=== PATIENT | female | born 1945 | race Caucasian/White ===

== ENCOUNTER → 2016-04-28 | Outpatient (CLI) | payer OTHER ==
[~2016-04-28] MED LIST: AMOX875T PO; ATV1 PO; DICY20TA10 PO; DPKSR/250 PO; MXL10 PO; PRLSR20 PO; SNG10 PO; SYN125 PO; TRAM-10 PO; ZTA10 PO
--- NOTE | 2016-04-28 15:07 | MAMMOGRAPHY REPORT ---
BILATERAL DIGITAL SCREENING MAMMOGRAM WITH CAD: 04/28/2016 TECHNIQUE: Current study was also evaluated with a Computer Aided Detection (CAD) system. Bilatera l CC and MLO views were obtained. COMPARISON: Comparison is made to exams dated: 03/12/2015 mammogram, 12/22/2012 mammogram, 1 mammogram, 01/09/2014 mammogram, 12/14/2011 mammogram, and 12/09/2009 mammogram - [facility]. BREAST COMPOSITION: There are scattered areas of fibroglandular density in both breasts. FINDINGS: No suspicious masses, calcifications, or areas of architectural distortion are noted in e ither breast. There has been no significant interval change compared to prior exams. Scattered bilat eral benign-appearing calcifications are not significantly changed. IMPRESSION: ACR BI-RADS CATEGORY 2: BENIGN There is no mammographic evidence of malignancy. A 1 year screening mammogram is recommended. The p atient will receive written notification of the results. Approximately 10% of breast cancers are not detected with mammography. A negative mammographic repor t should not delay biopsy if a clinically suggestive mass is present. Vonda Vizcaino M.D. ah/:04/28/2016 12:28:23 Repeater Operator: Karlene GUPTA(Alanna)(Helen), [facility] letter sent: Normal 1/2 BI-RADS Code: ACR BI-RADS Category 2: Benign
== END | disposition home or self-care (01) ==
LOC: C.MAMM 10:39
PROVIDERS: ATTEND Obstetrics & Gynecology
DX: Z12.31 Encounter for screening mammogram for malignant neoplasm of breast (principal)

== ENCOUNTER → 2016-06-15 | Outpatient (CLI) | payer OTHER ==
[~2016-06-15] MED LIST changes: -MXL10 PO; +RIZA10TA21 PO
--- NOTE | 2016-06-15 14:16 | DIAGNOSTIC IMAGING REPORT ---
KUB HISTORY: Lower abdominal pain. Constipation. COMPARISON: Abdomen and pelvis CT 12/25/2015. FINDINGS: The bowel gas pattern is unremarkable. There are no dilated loops of small bowel to suggest an obstruction. No renal calculi. No ureteral calculi. No pneumoperitoneum or pneumatosis. Moderate to large amount well-formed stool seen within the colon and rectum. IMPRESSION: No evidence for bowel obstruction. Moderate to large amount of well-formed stool seen within the colon and rectum. Electronically signed by: Valente Hall M.D. 06/15/2016 2:14 PM Dictated Date/Time: 06/15/2016 2:13 PM
[2016-06-15 14:39] LABS: BASO % 0.4 %; BASO ABS # 0.02 K/uL (0-0.2); COMPLETE YES; EOS % 1.1 %; HEMATOCRIT 42.3 % (37-47); IG% 0.2 %; LYMPH % 31.4 %; LYMPH ABS # 1.76 K/uL (1.2-3.4); MEAN CELL VOLUME 88.9 fL (80-100); MEAN CORPUSCULAR HEMOGLOBIN 30.7 pg (25-34); MEAN CORPUSCULAR HGB CONC 34.5 g/dl (32-36); MEAN PLATELET VOLUME 9.7 fL (7.4-10.4); NEUT % 58.9 %; PLATELET COUNT 279 K/uL (130-400); RED BLOOD COUNT 4.76 M/uL (4.2-5.4)
[2016-06-15 15:04] LABS: ALT/SGPT 55 U/L (12-78); BLOOD UREA NITROGEN 9 mg/dl (7-18); CALCIUM 9.5 mg/dl (8.5-10.1); CARBON DIOXIDE 26 mmol/L (21-32); CHLORIDE 101 mmol/L (98-107); CREATININE 0.79 mg/dl (0.60-1.20); GLUCOSE 79 mg/dl (70-99); POTASSIUM 4.1 mmol/L (3.5-5.1); SODIUM 138 mmol/L (136-145)
[2016-06-15 15:07] LABS: ALB/GLOB RATIO 1.2 (0.9-2); ALKALINE PHOSPHATASE 68 U/L (45-117); AST/SGOT 39 U/L (15-37)
== END | disposition home or self-care (01) ==
LOC: C.RAD 13:24
PROVIDERS: ATTEND Family Medicine
DX: R10.30 Lower abdominal pain, unspecified (principal)

== ENCOUNTER → 2016-06-24 | Outpatient (CLI) | payer OTHER ==
[~2016-06-24] MED LIST changes: +OPTIRAY 320 IV PRN
--- NOTE | 2016-06-24 18:19 | DIAGNOSTIC IMAGING REPORT ---
CT OF THE ABDOMEN AND PELVIS WITH CONTRAST CLINICAL HISTORY: Abdominal pain. Diverticulitis. Evaluate for abscess. COMPARISON STUDY: CT of the abdomen and pelvis December 25, 2015. TECHNIQUE: Following IV administration of 115 mL of Optiray-320, axial images of the abdomen and pelvis were obtained from the lung bases to the proximal femurs. Images were reviewed in the axial, sagittal, and coronal planes. IV contrast was administered without complication. Oral contrast was administered. CT DOSE: 414.95 mGy.cm FINDINGS: Lung bases are clear. The liver, spleen, adrenal glands, kidneys and pancreas are unremarkable. There is no pneumatosis, free air or portal venous gas. There is no peripancreatic or pericholecystic infiltration. There is no evidence for a bowel obstruction. There is a moderate amount of stool within the ascending and transverse colon. There is left colon diverticulosis without evidence for acute diverticulitis. No suspicious osseous lesion is present. There is moderate atherosclerotic plaque of the abdominal aorta which is normal in caliber. Major vessels of the abdomen and pelvis are patent. IMPRESSION: 1. No acute process within the abdomen or pelvis. 2. Left colon diverticulosis without evidence for acute diverticulitis. No abscess. Resolution of diverticulitis involving the descending colon shown on CT of December 25, 2015. 3. Moderate amount of stool within the ascending and transverse colon. Electronically signed by: Telly Camejo M.D. 06/24/2016 6:17 PM Dictated Date/Time: 06/24/2016 6:09 PM
== END | disposition home or self-care (01) ==
LOC: C.CTS 15:43
PROVIDERS: ATTEND Family Medicine
DX: R10.9 Unspecified abdominal pain (principal); K57.90 Diverticulosis of intestine, part unspecified, without perforation or abscess without bleeding

== ENCOUNTER → 2016-09-06 | Outpatient (CLI) | payer OTHER ==
[~2016-09-06] MED LIST changes: -OPTIRAY 320 IV PRN
[2016-09-06 13:28] LABS: BASO % 0.8 %; BASO ABS # 0.04 K/uL (0-0.2); COMPLETE YES; EOS % 7.9 %; HEMATOCRIT 42.4 % (37-47); IG% 0.2 %; LYMPH % 30.2 %; LYMPH ABS # 1.53 K/uL (1.2-3.4); MEAN CELL VOLUME 89.6 fL (80-100); MEAN CORPUSCULAR HEMOGLOBIN 29.6 pg (25-34); MEAN PLATELET VOLUME 9.4 fL (7.4-10.4); MONO % 10.5 %; NEUT % 50.4 %; PLATELET COUNT 284 K/uL (130-400); RED BLOOD COUNT 4.73 M/uL (4.2-5.4); WHITE BLOOD COUNT 5.06 K/uL (4.8-10.8)
[2016-09-06 14:36] LABS: ALB/GLOB RATIO 1.4 (0.9-2); ALKALINE PHOSPHATASE 69 U/L (45-117); ALT/SGPT 26 U/L (12-78); AST/SGOT 17 U/L (15-37); BLOOD UREA NITROGEN 20 mg/dl (7-18); BUN/CREATININE RATIO 22.6 (10-20); CALCIUM 9.5 mg/dl (8.5-10.1); CARBON DIOXIDE 29 mmol/L (21-32); CHLORIDE 102 mmol/L (98-107); CREATININE 0.89 mg/dl (0.60-1.20); GLUCOSE 47 mg/dl (70-99); POTASSIUM 4.1 mmol/L (3.5-5.1); SODIUM 138 mmol/L (136-145)
[2016-09-06 14:45] LABS: CHOLESTEROL/HDL RATIO 3.6
== END | disposition home or self-care (01) ==
LOC: C.LAB 12:17
PROVIDERS: ATTEND Physician Assistant
DX: G43.909 Migraine, unspecified, not intractable, without status migrainosus (principal); E03.9 Hypothyroidism, unspecified

== ENCOUNTER 2016-11-15 20:42 | Emergency (ER) | payer OTHER ==
[~2016-11-15] VITALS: Ht 162.6 cm; Wt 73.5 kg
[~2016-11-15 20:42] MED LIST changes: -AMOX875T PO; +MXL10 PO; -RIZA10TA21 PO; -TRAM-10 PO
[2016-11-15 20:44] VITALS: TEMP 36.6; Ht 162.6 cm; Wt 73.5 kg
[2016-11-15] MEDS ORDERED: SODIUM CHLORIDE 0.9% 250ML 250 ML IV STA (20:51)
[2016-11-15] MEDS ORDERED: SODIUM CHLORIDE 0.9% 1000ML 1,000 ML IV STA (20:51)
--- NOTE | 2016-11-15 21:01 | EMERGENCY ROOM VISIT NOTE ---
History Report prepared by Cathleen: Venkat Crawford Under the Supervision of: Dr. Milena Saavedra M.D. First contact with patient: 20:51 Chief Complaint: ABDOMINAL PAIN Stated Complaint: PAIN IN LEFT SIDE History of Present Illness The patient is a 71 year old female who presents to the Emergency Room with complaints of left lower quadrant abdominal pain that began this morning. She rates her pain an 8/10 in severity. The patient has a history of diverticulitis that occurred 1 year ago. She states her current symptoms feel similar to those of her past diverticulitis. She notes that last year when her pain occurred, she had eaten eggplant. She did eat eggplant yesterday evening. She denies any fevers, diarrhea, or hematochezia. Her last bowel movement was this morning which was normal. She also notes that after drinking herbal tea, her pain improved, but worsened after eating. She went to [facility] this evening, received x-rays, and was sent here. Source of History: patient Onset: this morning Position: abdomen (LLQ) Symptom Intensity: 8/10 Quality: ache Timing: constant Modifying Factors (Worsening): eating Modifying Factors (Relieving): drinking (herbal tea) Associated Symptoms: No melena, No hematochezia, No diarrhea Review of Systems See HPI for pertinent positives & negatives. A total of 10 systems reviewed and were otherwise negative. Past Medical & Surgical Medical Problems: (1) Asthma (2) Depression (3) Hypoglycemia (4) Hypothyroidism (5) Raynauds syndrome (6) Seasonal allergies Family History Cancer Diabetes mellitus Hypertension Social History Smoking Status: Former Smoker Alcohol Use: none Marital Status: Housing Status: lives with family Occupation Status: retired Current/Historical Medications Scheduled Divalproex Sodium (Depakote Extended-Release), 250 MG PO HS Ezetimibe (Zetia), 10 MG PO DAILY Levothyroxine Sodium (Synthroid), 125 MCG PO DAILY Montelukast (Singulair *), 10 MG PO DHS Scheduled PRN Dicyclomine Hcl (Dicyclomine Hcl), 20 MG PO DAILY PRN for unkn Lorazepam (Lorazepam), 1 MG PO HS PRN for RESTLESS LEG Omeprazole (Prilosec), 20 MG PO DAILY PRN for GI Upset Rizatriptan Benzoate (Rizatriptan Benzoate), 10 MG PO DIRECTED PRN for Migraine Allergies Coded Allergies: Morphine (Verified Allergy, Mild, RASH, 11/15/16) Mild rash Quinolones (Verified Allergy, Mild, ALLERGY TO FLOXIN, CIPRO, 11/15/16) Dust (Unverified Allergy, Unknown, 11/15/16) Molds and Smuts (Unverified Allergy, Unknown, 11/15/16) Metronidazole (Unverified Adverse Reaction, Severe, MIGRAINE, 11/15/16) Physical Exam Vital Signs Date Time Temp Pulse Resp B/P (MAP) Pulse Ox O2 Delivery O2 Flow Rate FiO2 11/15/16 22:29 83 20 135/69 98 Room Air 11/15/16 21:19 63 11/15/16 20:44 36.6 68 16 153/70 100 Room Air Physical Exam Vital signs reviewed. General: Well-appearing female, in no significant distress. HEENT: No scleral icterus, PERRLA, neck supple. Atraumatic. Cardiovascular: Regular rate and rhythm, no extra sounds. Pulmonary: Clear to auscultation bilaterally, normal work of breathing. Abdomen: Soft, tender to palpation in the LLQ, nondistended, positive bowel sounds. Musculoskeletal: Atraumatic, no peripheral edema. Neurologic: Patient awake alert and oriented x 3, full strength in all 4 extremities. Cranial nerves 2 through 12 grossly intact. Skin: Warm, dry, no rash Medical Decision & Procedures ER Provider Diagnostic Interpretation: Radiology results as stated below per my review and radiologist interpretation: ABD/PELVIS IV CONTRAST ONLY HISTORY: 71 years-old Female LLQ pain, diverticulitis acute left lower quadrant abdominal pain. Initial exam. COMPARISON: CT abdomen and pelvis 06/24/2016 TECHNIQUE: Multiple axial CT images of the abdomen and pelvis were obtained following the intravenous administration of 92 mL Optiray 320. A dose lowering technique was used consistent with the principals of CHANDLER. FINDINGS: Inferior cardiac chambers are unremarkable, although there is a trace pericardial effusion. Lung bases are clear. Liver, gallbladder, spleen, pancreas and adrenal glands are within normal limits. Kidneys, ureters and urinary bladder are unremarkable. The uterus appears age-appropriate. Moderate to extensive atherosclerotic plaquing of the abdominal and iliac vasculature is noted. No bulky retroperitoneal adenopathy identified. Small sliding type hiatal hernia. There is no small bowel obstruction. Trace free fluid within the pelvis is seen. There is moderate wall thickening of the distal descending colon with mucosal hyperemia surrounding inflammatory stranding. Several colonic diverticula are seen within this distribution suggesting acute diverticulitis. There is no evidence of associated perforation or abscess at this time. Moderate stool burden. Soft tissues are unremarkable. Bones appear intact. 7 mm anterolisthesis L4-L5 appears to be secondary to severe facet arthropathy. There is mild convex left curvature of the lumbar spine. IMPRESSION: Findings compatible with acute uncomplicated diverticulitis of the distal descending colon without evidence of perforation or abscess. The above report was generated using voice recognition software. It may contain grammatical, syntax or spelling errors. Electronically signed by: Home Martin M.D. 11/15/2016 10:57 PM Dictated Date/Time: 11/15/2016 10:52 PM Laboratory Results 11/15/16 21:23 Red Blood Count 4.48, Mean Corpuscular Volume 87.3, Mean Corpuscular Hemoglobin 30.8, Mean Corpuscular Hemoglobin Concent 35.3, Mean Platelet Volume 9.1, Neutrophils (%) (Auto) 64.0, Lymphocytes (%) (Auto) 23.7, Monocytes (%) (Auto) 8.9, Eosinophils (%) (Auto) 2.6, Basophils (%) (Auto) 0.5, Neutrophils # (Auto) 4.88, Lymphocytes # (Auto) 1.81, Monocytes # (Auto) 0.68, Eosinophils # (Auto) 0.20, Basophils # (Auto) 0.04 11/15/16 21:23 Test 11/15/16 21:11 11/15/16 21:23 Urine Color YELLOW Urine Appearance CLEAR (CLEAR) Urine pH 7.0 (4.5-7.5) Urine Specific [place] 1.007 (1.000-1.030) Urine Protein NEG (NEG) Urine Glucose (UA) NEG (NEG) Urine Ketones NEG (NEG) Urine Occult Blood NEG (NEG) Urine Nitrite NEG (NEG) Urine Bilirubin NEG (NEG) Urine Urobilinogen NEG (NEG) Urine Leukocyte Esterase SMALL (NEG) Urine WBC (Auto) 0 /hpf (0-5) Urine RBC (Auto) 0-4 /hpf (0-4) Urine Hyaline Casts (Auto) 0 /lpf (0-5) Urine Epithelial Cells (Auto) 0-5 /lpf (0-5) Urine Bacteria (Auto) NEG (NEG) White Blood Count 7.63 K/uL (4.8-10.8) Red Blood Count 4.48 M/uL (4.2-5.4) Hemoglobin 13.8 g/dL (12.0-16.0) Hematocrit 39.1 % (37-47) Mean Corpuscular Volume 87.3 fL (80-100) Mean Corpuscular Hemoglobin 30.8 pg (25-34) Mean Corpuscular Hemoglobin Concent 35.3 g/dl (32-36) Platelet Count 222 K/uL (130-400) Mean Platelet Volume 9.1 fL (7.4-10.4) Neutrophils (%) (Auto) 64.0 % Lymphocytes (%) (Auto) 23.7 % Monocytes (%) (Auto) 8.9 % Eosinophils (%) (Auto) 2.6 % Basophils (%) (Auto) 0.5 % Neutrophils # (Auto) 4.88 K/uL (1.4-6.5) Lymphocytes # (Auto) 1.81 K/uL (1.2-3.4) Monocytes # (Auto) 0.68 K/uL (0.11-0.59) Eosinophils # (Auto) 0.20 K/uL (0-0.5) Basophils # (Auto) 0.04 K/uL (0-0.2) RDW Standard Deviation 42.5 fL (36.4-46.3) RDW Coefficient of Variation 13.2 % (11.5-14.5) Immature Granulocyte % (Auto) 0.3 % Immature Granulocyte # (Auto) 0.02 K/uL (0.00-0.02) Anion Gap 6.0 mmol/L (3-11) Est Creatinine Clear Calc Drug Dose 73.5 ml/min Estimated GFR () 101.7 Estimated GFR (Non- 87.8 BUN/Creatinine Ratio 15.0 (10-20) Calcium Level 9.3 mg/dl (8.5-10.1) Total Bilirubin 0.5 mg/dl (0.2-1) Direct Bilirubin 0.1 mg/dl (0-0.2) Aspartate Amino Transf (AST/SGOT) 22 U/L (15-37) Alanine Aminotransferase (ALT/SGPT) 23 U/L (12-78) Alkaline Phosphatase 61 U/L (45-117) Total Protein 6.7 gm/dl (6.4-8.2) Albumin 3.9 gm/dl (3.4-5.0) Lipase 88 U/L (73-393) Laboratory results per my review. Medications Administered Medications (Trade) Dose Ordered Sig/Eloina Route Start Time Stop Time Status Last Admin Dose Admin Sodium Chloride 1,000 ml @ 125 mls/hr Q8H STAT IV 11/15/16 20:51 11/16/16 04:50 11/15/16 21:46 125 MLS/HR Sodium Chloride 250 ml @ 999 mls/hr Q16M STAT IV 11/15/16 20:51 11/15/16 21:06 DC 11/15/16 21:29 999 MLS/HR Morphine Sulfate (MoRPHine SULFATE INJ) 4 mg NOW STAT IV 11/15/16 22:16 11/15/16 22:17 DC 11/15/16 22:27 4 MG Ondansetron HCl (Zofran Inj) 4 mg NOW STAT IV 11/15/16 22:16 11/15/16 22:17 DC 11/15/16 22:27 4 MG Diphenhydramine HCl (Benadryl Inj) 25 mg NOW STAT IV 11/15/16 22:56 11/15/16 22:57 DC 11/15/16 22:59 25 MG ED Course 2050: Past medical records reviewed. The patient was evaluated in room B3B. A complete history and physical examination was performed. 2050: Ordered Sodium Chloride 250 ml @ 999 mls/hr IV, Sodium Chloride 1000 ml @ 125 mls/hr IV 2215: Ordered Zofran Inj 4 mg IV, Morphine Sulfate 4 mg IV 0: Upon reevaluation, the patient appeared to have improvement of her symptoms. I discussed findings with her. She verbalized agreement of the treatment plan. She was discharged home. Medical Decision Differential diagnosis: Etiologies such as appendicitis, diverticulitis, PUD, biliary pathology, UTI, pancreatitis, obstruction, mesenteric ischemia, aortic pathology, infections, inflammatory bowel disease, renal colic, as well as others were entertained. This patient was evaluated and appeared to be in no significant distress. IV access was obtained and laboratory work was drawn. The patient was placed on the seamer and found to be in a normal sinus rhythm. She was hydrated with normal saline solution. Patient was medicated with morphine and Zofran for her discomfort. CT scan abdomen and pelvis was performed with IV contrast. This study is consistent with acute diverticulitis without abscess or perforation. Patient has a normal white blood cell count. She did develop a mild rash to the morphine and was given 25 mg of IV Benadryl. Patient was informed of the findings. She was given a prescription for Augmentin 875 mg by mouth twice a day for 7 days. First dose was given in the emergency department. She was also given Ultram with a home pack to be used for pain. Patient will follow-up with her primary care physician this week for reevaluation and return to the ER for worsening of symptoms or any medical concerns. Medication Reconcilliation Current Medication List: was personally reviewed by me Blood Pressure Screening Patient's blood pressure: Elevated blood pressure Blood pressure disposition: Elevated BP felt to be situational Impression Primary Impression: Diverticulitis Scribe Attestation The scribe's documentation has been prepared under my direction and personally reviewed by me in its entirety. I confirm that the note above accurately reflects all work, treatment, procedures, and medical decision making performed by me. Departure Information Dispostion Home / Self-Care Referrals Jerrell Florez M.D. (PCP) Forms HOME CARE DOCUMENTATION FORM, IMPORTANT VISIT INFORMATION Patient Instructions My [facility] Additional Instructions Diagnosis: Diverticulitis Augmentin 875 mg twice daily for 7 days. Drink plenty of clear fluids and maintain a low fiber diet. Ultram 50 mg every 6 hours as needed for pain. Follow-up with your physician this week for reevaluation. Return to the emergency department for worsening of symptoms or any medical concerns.
[2016-11-15] MEDS ORDERED: OPTIRAY 320 IV PRN (21:15)
[2016-11-15 21:35] LABS: URINE APPEARANCE CLEAR (CLEAR); URINE BILIRUBIN NEG (NEG); URINE COLOR YELLOW; URINE NITRITE NEG (NEG); URINE SPECIFIC GRAVITY 1.007 (1.000-1.030); UROBILINOGEN NEG (NEG); ZZUR CULT IF INDIC CLEAN CATCH NO
[2016-11-15 21:35] LABS: BASO % 0.5 %; BASO ABS # 0.04 K/uL (0-0.2); COMPLETE YES; EOS % 2.6 %; HEMATOCRIT 39.1 % (37-47); IG% 0.3 %; LYMPH % 23.7 %; LYMPH ABS # 1.81 K/uL (1.2-3.4); MEAN CELL VOLUME 87.3 fL (80-100); MEAN CORPUSCULAR HEMOGLOBIN 30.8 pg (25-34); MEAN CORPUSCULAR HGB CONC 35.3 g/dl (32-36); MEAN PLATELET VOLUME 9.1 fL (7.4-10.4); MONO % 8.9 %; PLATELET COUNT 222 K/uL (130-400); RED BLOOD COUNT 4.48 M/uL (4.2-5.4); WHITE BLOOD COUNT 7.63 K/uL (4.8-10.8)
[2016-11-15 21:39] LABS: MANUAL MICROSCOPIC REQUIRED? NO; REVIEW REQ? YES
[2016-11-15 21:44] LABS: URINE EPITHELIAL CELL AUTO 0-5 /lpf (0-5)
[2016-11-15 21:51] LABS: CALCIUM 9.3 mg/dl (8.5-10.1); CREATININE 0.7 mg/dl (0.60-1.20); POTASSIUM 3.9 mmol/L (3.5-5.1)
[2016-11-15] MEDS ORDERED: MoRPHine SULFATE 4 MG/ML 1 ML CARP\\VIAL IV STA (22:16)
[2016-11-15] MEDS ORDERED: ONDANSETRON INJ 2 MG/ML 2 ML VIAL IV STA (22:16)
[2016-11-15] MEDS ORDERED: DiphenhydrAMINE HCL 50 MG/ML VIAL IV STA (22:56)
--- NOTE | 2016-11-15 22:58 | DIAGNOSTIC IMAGING REPORT ---
ABD/PELVIS IV CONTRAST ONLY HISTORY: 71 years-old Female LLQ pain, diverticulitis acute left lower quadrant abdominal pain. Initial exam. COMPARISON: CT abdomen and pelvis 06/24/2016 TECHNIQUE: Multiple axial CT images of the abdomen and pelvis were obtained following the intravenous administration of 92 mL Optiray 320. A dose lowering technique was used consistent with the principals of CHANDLER. FINDINGS: Inferior cardiac chambers are unremarkable, although there is a trace pericardial effusion. Lung bases are clear. Liver, gallbladder, spleen, pancreas and adrenal glands are within normal limits. Kidneys, ureters and urinary bladder are unremarkable. The uterus appears age-appropriate. Moderate to extensive atherosclerotic plaquing of the abdominal and iliac vasculature is noted. No bulky retroperitoneal adenopathy identified. Small sliding type hiatal hernia. There is no small bowel obstruction. Trace free fluid within the pelvis is seen. There is moderate wall thickening of the distal descending colon with mucosal hyperemia surrounding inflammatory stranding. Several colonic diverticula are seen within this distribution suggesting acute diverticulitis. There is no evidence of associated perforation or abscess at this time. Moderate stool burden. Soft tissues are unremarkable. Bones appear intact. 7 mm anterolisthesis L4-L5 appears to be secondary to severe facet arthropathy. There is mild convex left curvature of the lumbar spine. IMPRESSION: Findings compatible with acute uncomplicated diverticulitis of the distal descending colon without evidence of perforation or abscess. The above report was generated using voice recognition software. It may contain grammatical, syntax or spelling errors. Electronically signed by: Home Martin M.D. 11/15/2016 10:57 PM Dictated Date/Time: 11/15/2016 10:52 PM
[2016-11-15] MEDS ORDERED: AMOX875T PO (23:04)
[2016-11-15] MEDS ORDERED: TRAM-10 PO (23:04)
[2016-11-15] MEDS ORDERED: AMOXICILLIN/CLAVULANATE TAB 875 MG TAB PO ONE (23:15)
[2016-11-15] MEDS ORDERED: TRAMADOL HCL 50 MG HOME PACK PO ONE (23:15)
[2016-11-16 00:15] VITALS: BP 115/63; PULSE 66; O2SAT 98
== END 2016-11-16 00:27 | disposition home or self-care (01) ==
LOC: C.EDB 20:44
DX: K57.92 Diverticulitis of intestine, part unspecified, without perforation or abscess without bleeding (principal); E03.9 Hypothyroidism, unspecified; F32.9 Major depressive disorder, single episode, unspecified; J45.909 Unspecified asthma, uncomplicated; I73.00 Raynaud's syndrome without gangrene; Z87.891 Personal history of nicotine dependence; Z79.899 Other long term (current) drug therapy; Z88.5 Allergy status to narcotic agent; Z88.8 Allergy status to other drugs, medicaments and biological substances; Z91.09 Other allergy status, other than to drugs and biological substances; Z80.9 Family history of malignant neoplasm, unspecified; Z83.3 Family history of diabetes mellitus; Z82.49 Family history of ischemic heart disease and other diseases of the circulatory system

== ENCOUNTER → 2017-05-10 | Outpatient (CLI) | payer OTHER ==
[~2017-05-10] MED LIST changes: -MXL10 PO; +RIZA10TA21 PO; +TRAM-10 PO
--- NOTE | 2017-05-10 15:15 | MAMMOGRAPHY REPORT ---
BILATERAL DIGITAL SCREENING MAMMOGRAM TOMOSYNTHESIS WITH CAD: 05/10/2017 CLINICAL HISTORY: Routine screening. Patient has no complaints. TECHNIQUE: Breast tomosynthesis in addition to standard 2D mammography was performed. Current study was also evaluated with a Computer Aided Detection (CAD) system. COMPARISON: Comparison is made to exams dated: 04/28/2016 mammogram, 03/12/2015 mammogram, 01/09/2014 mammogram, 12/22/2012 mammogram, 12/14/2011 mammogram, and 12/10/2010 mammogram - [facility]. BREAST COMPOSITION: There are scattered areas of fibroglandular density in both breasts. FINDINGS: The parenchymal pattern is unchanged. There are scattered benign round and rim calcificat ions in the breasts. No developing mass, architectural distortion or cluster of suspicious microcalc ifications is seen in either breast. IMPRESSION: ACR BI-RADS CATEGORY 2: BENIGN There is no mammographic evidence of malignancy. A 1 year screening mammogram is recommended. The pa tient will receive written notification of the results. Approximately 10% of breast cancers are not detected with mammography. A negative mammographic report should not delay biopsy if a clinically suggestive mass is present. Bozena Zhang M.D. ay/:05/10/2017 12:35:58 Rn Integrated: Alanna Chris M, [facility] letter sent: Normal 1/2 BI-RADS Code: ACR BI-RADS Category 2: Benign
== END | disposition home or self-care (01) ==
LOC: C.MAMM 11:32
PROVIDERS: ATTEND Obstetrics & Gynecology
DX: Z12.31 Encounter for screening mammogram for malignant neoplasm of breast (principal)

== ENCOUNTER → 2017-07-11 | Outpatient (CLI) | payer OTHER ==
[~2017-07-11] MED LIST changes: -TRAM-10 PO
[2017-07-11 18:43] LABS: BASO % 0.4 %; BASO ABS # 0.02 K/uL (0-0.2); EOS % 0.9 %; EOS ABS # 0.05 K/uL (0-0.5); HEMOGLOBIN 16.1 g/dL (12.0-16.0); IG# 0.01 K/uL (0.00-0.02); LYMPH % 30.8 %; LYMPH ABS # 1.68 K/uL (1.2-3.4); MEAN CELL VOLUME 86.9 fL (80-100); MEAN CORPUSCULAR HEMOGLOBIN 31.1 pg (25-34); MEAN CORPUSCULAR HGB CONC 35.8 g/dl (32-36); MEAN PLATELET VOLUME 9.3 fL (7.4-10.4); MONO % 8.2 %; MONO ABS # 0.45 K/uL (0.11-0.59); NEUT % 59.5 %; NEUT ABS # 3.25 K/uL (1.4-6.5); PLATELET COUNT 282 K/uL (130-400); RED CELL DISTRIBUTION WIDTH CV 13.4 % (11.5-14.5); RED CELL DISTRIBUTION WIDTH SD 42.6 fL (36.4-46.3); WHITE BLOOD COUNT 5.46 K/uL (4.8-10.8)
[2017-07-11 19:11] LABS: ALBUMIN 4.3 gm/dl (3.4-5.0); ALT/SGPT 45 U/L (12-78); AST/SGOT 23 U/L (15-37); BLOOD UREA NITROGEN 10 mg/dl (7-18); CALCIUM 9.5 mg/dl (8.5-10.1); CARBON DIOXIDE 27 mmol/L (21-32); CHOLESTEROL 241 mg/dl (0-200); GLUCOSE 76 mg/dl (70-99); POTASSIUM 3.9 mmol/L (3.5-5.1); SODIUM 135 mmol/L (136-145); URIC ACID 5.6 mg/dl (2.6-7.2)
[2017-07-11 19:13] LABS: CARCINOEMBRYONIC ANTIGEN 3.1 ng/ml (0-2.5)
[2017-07-11 19:20] LABS: ALKALINE PHOSPHATASE 79 U/L (45-117); LDL CHOLESTEROL CALCULATED 152 mg/dl; TOTAL PROTEIN 7.8 gm/dl (6.4-8.2); TRANSFERRIN 267 mg/dl (200-360)
[2017-07-12 06:50] LABS: HEMOGLOBIN A1C 5.3 % (4.5-5.6)
== END | disposition home or self-care (01) ==
LOC: C.LAB 17:27
PROVIDERS: ATTEND Family Medicine
DX: R73.09 Other abnormal glucose (principal); E55.9 Vitamin D deficiency, unspecified; D51.9 Vitamin B12 deficiency anemia, unspecified; E78.9 Disorder of lipoprotein metabolism, unspecified; R53.83 Other fatigue; R10.32 Left lower quadrant pain

== ENCOUNTER → 2017-07-12 | Outpatient (CLI) | payer OTHER ==
[~2017-07-12] MED LIST changes: +OPTIRAY 320 IV PRN
--- NOTE | 2017-07-12 14:24 | DIAGNOSTIC IMAGING REPORT ---
ABD/PELVIS IV AND ORAL CONT CT DOSE: 584.90 mGycm HISTORY: Left lower quadrant pain DIVERTICULITIS TECHNIQUE: Multiaxial CT images of the abdomen and pelvis were performed following the use of intravenous and oral contrast. A dose lowering technique was utilized adhering to the principles of ALARA. COMPARISON STUDY: 11/15/2016 FINDINGS: The lung bases are clear. The liver, spleen, gallbladder, pancreas, kidneys, and adrenal glands are within normal limits. No bowel wall thickening or obstruction. The pelvic organs are unremarkable. No suspicious lytic or blastic osseous lesions. IMPRESSION: No significant abnormality identified within the abdomen or pelvis. The above report was generated using voice recognition software. It may contain grammatical, syntax or spelling errors. Electronically signed by: Nick Waldron M.D. 07/12/2017 2:23 PM Dictated Date/Time: 07/12/2017 2:17 PM
== END | disposition home or self-care (01) ==
LOC: C.CTS 13:32
PROVIDERS: ATTEND Family Medicine
DX: K57.92 Diverticulitis of intestine, part unspecified, without perforation or abscess without bleeding (principal)

== ENCOUNTER → 2017-09-27 | Outpatient (CLI) | payer OTHER ==
[~2017-09-27] MED LIST changes: +ACET-24 PO; +ALBU18002 INH; +ASPI-461 PO; +CETI10TA84 PO; +CLOT10TR2 MT; +LINA72CA PO; +MONT1TAB3 PO; +MULT-506 PO; +ONDA4TAB65 PO; -OPTIRAY 320 IV PRN; +POLYSOL4 OP; -PRLSR20 PO; +PSEU30TA3 PO; +RANITAB6 PO; -SNG10 PO; +ULT50X PO
--- NOTE | 2017-10-16 13:55 | CODING QUERY NO DIAGNOSIS ---
TREATMENT RENDERED WITHOUT A DIAGNOSIS To promote full compliance with coding requirements relating to patient care, physician participation is requested in all cases of certified medical records coder uncertainty. Please assist us with providing a diagnosis/symptom for the test(s) below: A diagnosis/symptom was not documented on your Order. A valid diagnosis/symptom is required to bill all insurances. Please remember that we are unable to code a diagnosis of rule out, probable, possible, questionable, or suspected. Tests that require a diagnosis: DOS: 09/27/17 * URINE CULTURE CLEAN CATCH DIAGNOSIS: Provider Signature: Date: Thank you Maryuri Sumner [facility] Information Management Once completed, please kindly fax back to [phone] For questions please call [phone]
== END | disposition home or self-care (01) ==
LOC: C.LABSPEC 14:12
PROVIDERS: ATTEND Family Medicine
DX: N39.0 Urinary tract infection, site not specified (principal)

== ENCOUNTER 2017-10-11 04:54 | Inpatient (IN) | payer OTHER ==
[2017-08-23 08:24] VITALS: BMI 26.0
--- NOTE | 2017-08-29 11:00 | PAT Medication Instructions ---
Service Date Aug 29, 2017. Current Home Medication List Albuterol Sulfate (Proair Respiclick), 2 PUFF INH Q6 PRN for SOB/Wheezing Cetirizine (Zyrtec), 10 MG PO DAILY PRN for PRN Clotrimazole (Mycelex), 10 MG MT UD PRN for PRN Dicyclomine Hcl (Dicyclomine Hcl), 20 MG PO DAILY PRN for unkn Divalproex Sodium (Depakote Extended-Release), 250 MG PO HS Ezetimibe (Zetia), 10 MG PO 3XWK Levothyroxine Sodium (Synthroid), 125 MCG PO QAM Linaclotide (Linzess), 1 CAP PO QAM Lorazepam (Lorazepam), 1 MG PO HS PRN for RESTLESS LEG Montelukast Sodium (Singulair), 10 MG PO HS Multivitamin (Multivitamin), 1 TAB PO QAM Polyethylene Glycol-Propylene (Systane), 1 DROPS OP QID PRN for PRN Pseudoephedrine Hcl (Sudafed Nasal Decongestan), 1 TAB PO QAM Ranitidine Hcl (Zantac 150 Maximum Streng), 1 TAB PO BID PRN for Indigestion Rizatriptan Benzoate (Rizatriptan Benzoate), 10 MG PO DIRECTED PRN for Migraine Medication Instructions For Your Scheduled Surgery - Hold the following medications the morning of surgery: Multivitamin (Multivitamin), 1 TAB PO QAM Pseudoephedrine Hcl (Sudafed Nasal Decongestan), 1 TAB PO QAM Clotrimazole (Mycelex), 10 MG MT UD PRN for PRN Cetirizine (Zyrtec), 10 MG PO DAILY PRN for PRN Dicyclomine Hcl (Dicyclomine Hcl), 20 MG PO DAILY if needed - Take the following medications the morning of surgery with a sip of water: * OTHERWISE NOTHING TO EAT OR DRINK AFTER MIDNIGHT* Linaclotide (Linzess), 1 CAP PO QAM Levothyroxine Sodium (Synthroid), 125 MCG PO QAM Ezetimibe (Zetia), 10 MG PO 3XWK Albuterol Sulfate (Proair Respiclick), 2 PUFF INH Q6 PRN for SOB/Wheezing *ALSO PLEASE BRING TO THE HOSPITAL THE MORNING OF THE SURGERY* Polyethylene Glycol-Propylene (Systane), 1 DROPS OP QID PRN for PRN Ranitidine Hcl (Zantac 150 Maximum Streng), 1 TAB PO BID PRN for Indigestion - Take the following medications as scheduled the night before surgery: Montelukast Sodium (Singulair), 10 MG PO HS Lorazepam (Lorazepam), 1 MG PO HS PRN for RESTLESS LEG Divalproex Sodium (Depakote Extended-Release), 250 MG PO HS Polyethylene Glycol-Propylene (Systane), 1 DROPS OP QID PRN for PRN Ranitidine Hcl (Zantac 150 Maximum Streng), 1 TAB PO BID PRN for Indigestion Rizatriptan Benzoate (Rizatriptan Benzoate), 10 MG PO DIRECTED if needed for Migraine If you have any questions please call us at [phone] or [phone] or [phone]
--- NOTE | 2017-08-29 11:43 | DIAGNOSTIC IMAGING REPORT ---
CHEST 2 VIEWS ROUTINE CLINICAL HISTORY: Preoperative chest COMPARISON STUDY: 07/20/2014 FINDINGS: The cardiac and mediastinal contours are normal. There is no evidence of focal pulmonary consolidation. There is no evidence of failure. No pleural effusions are visualized.[ IMPRESSION: No active disease in the chest. Electronically signed by: Goran Patton M.D. 08/29/2017 11:42 AM Dictated Date/Time: 08/29/2017 11:41 AM
[2017-08-29 11:56] LABS: BASO % 0.8 %; BASO ABS # 0.03 K/uL (0-0.2); EOS % 1.8 %; EOS ABS # 0.07 K/uL (0-0.5); HEMATOCRIT 42.1 % (37-47); HEMOGLOBIN 14.1 g/dL (12.0-16.0); IG# 0.02 K/uL (0.00-0.02); LYMPH % 36.2 %; LYMPH ABS # 1.38 K/uL (1.2-3.4); MEAN CELL VOLUME 89.8 fL (80-100); MEAN CORPUSCULAR HEMOGLOBIN 30.1 pg (25-34); MEAN CORPUSCULAR HGB CONC 33.5 g/dl (32-36); MONO % 15.2 %; MONO ABS # 0.58 K/uL (0.11-0.59); NEUT % 45.5 %; NEUT ABS # 1.73 K/uL (1.4-6.5); PLATELET COUNT 263 K/uL (130-400); RED CELL DISTRIBUTION WIDTH CV 13.7 % (11.5-14.5); RED CELL DISTRIBUTION WIDTH SD 44.7 fL (36.4-46.3); WHITE BLOOD COUNT 3.81 K/uL (4.8-10.8)
--- NOTE | 2017-10-07 18:59 | HISTORY & PHYSICAL EXAMINATION ---
DATE OF ADMISSION: 10/11/2017 CHIEF COMPLAINT: Bilateral knee pain and discomfort, left side greater than the right. HISTORY OF PRESENT ILLNESS: The patient is a 72-year-old female who presents for surgical treatment of her left knee. She is referred by my partner Dr. Cosme. She has a 3-year history of bilateral knee pain and discomfort, left side quite a bit worse than the right. She describes global pain. It increases with weightbearing. She has failed conservative treatment. It is really starting to limit her activities and she would like to have her left knee replaced. PAST MEDICAL HISTORY: 1. Asthma. 2. Hypothyroidism. 3. Arthritis. 4. Gastroesophageal reflux disease. PAST SURGICAL HISTORY: Previous surgeries include: 1. D and C. 2. Cystoscopy. 3. Laparoscopy. ALLERGIES: 1. CIPRO. 2. Unspecified med. 3. FLAGYL. 4. MORPHINE. 5. QUINOLONE. CURRENT MEDICINES: Include: 1. Synthroid. 2. Ativan. 3. Singulair. 4. Zetia. 5. Depakote for headaches. 6. Bentyl. 7. Multivitamin. 8. Zantac. SOCIAL HISTORY: A 72-year-old female. She is . Does not smoke. FAMILY HISTORY: Noncontributory. REVIEW OF SYSTEMS: Negative for diabetes, neurologic problems, vascular problems, bleeding disorders. Denies any chest pain or shortness of breath. No history of DVT or PE. PHYSICAL EXAMINATION: GENERAL: Shows a thin, healthy, pleasant middle-aged female, looks to be in good health. HEENT: Benign. NECK: Supple, no lymphadenopathy. LUNGS: Clear to auscultation. HEART: Regular rate and rhythm. ABDOMEN: Soft, nontender, nondistended. EXTREMITIES: Grossly neurovascularly intact except as follows: Examination of left knee reveals patient walks with a slightly antalgic gait. She got valgus alignment to her knee which is made worse with weightbearing. Range of motion is 5-120. She has no instability. No pain with hip motion. She is neurologically intact. X-RAYS: X-rays of the left knee reveal advanced lateral compartment DJD. She has complete loss of her lateral joint space, particularly on the 40 degree flexion films. She has some chondrocalcinosis. She has got calcification of distal femur. Some mild patellofemoral arthritis. ASSESSMENT: A 72-year-old white female with advanced left knee degenerative joint disease unresponsive to conservative treatment. She would like to have her left knee fixed. PLAN: We will take her to the operating room and do a left total knee replacement. The risks and benefits of this procedure explained to the patient including but not limited to DVT, PE, , infection, neurological injury, vascular injury, bleeding problem, pain, limited range of motion, stiffness, failure to relieve symptoms, incomplete relief of symptoms, need for further surgery in future, fracture, leg length inequality, nerve palsy, etc. The patient understands and desires to proceed. Informed consent was obtained. As far as discharge plans, she is planning to be discharged to home with her 's assistance and using [facility]. DARLENE
[~2017-10-11] VITALS: Ht 162.6 cm; Wt 69.5 kg
[2017-10-11] VITALS (9 sets, daily range): BP systolic 101–126; BP diastolic 64–78; PULSE 59–76; TEMP 36.3–36.7; O2SAT 93–100; Ht 162.6 cm; Wt 69.5 kg
[~2017-10-11 04:54] MED LIST changes: -ACET-24 PO; -ASPI-461 PO; -ONDA4TAB65 PO; -ULT50X PO
[2017-10-11] MEDS ORDERED: GABAPENTIN 300 MG CAP PO SCH (06:00)
[2017-10-11] MEDS ORDERED: CEFAZOLIN 2000MG IV PUSH 15 ML IV SCH (06:00)
[2017-10-11] MEDS ORDERED: FAMOTIDINE 20 MG TAB PO SCH (06:00)
[2017-10-11] MEDS ORDERED: LACTATED RINGER'S 1000ML 500 ML IV SCH (06:00)
[2017-10-11] MEDS ORDERED: METOCLOPRAMIDE HCL 10 MG TAB PO SCH (06:00)
[2017-10-11] MEDS ORDERED: LACTATED RINGER'S 1000ML 1,000 ML IV SCH (06:00)
[2017-10-11] MEDS ORDERED: LACTATED RINGER'S 1000ML IV SCH (06:00)
[2017-10-11] MEDS ORDERED: BUPIVACAINE LIPOSOME 266 MG, BUPIVACAINE/EPINEPHRINE INJ 50 ML, SODIUM CHLORIDE 0.9% PF... INFIL SCH ×3 (06:00)
[2017-10-11] MEDS ORDERED: TRANEXAMIC ACID INJ 1,000 MG x 1 Bag Intra-Op IV SCH ×2 (06:00)
[2017-10-11] MEDS ORDERED: ACETAMINOPHEN 500 MG TAB PO SCH (06:00)
[2017-10-11] MEDS ORDERED: BUPIVACAINE 0.5 % 5 MG/1 ML PF 10ML VIAL ONE (06:23)
[2017-10-11] MEDS ORDERED: ROPIVACAINE 0.5% 5 MG/ML 30 ML VIAL ONE (06:24)
[2017-10-11] MEDS ORDERED: EpINEphrine INJ 1MG/ML AMP 1 MG/ML AMP ONE ×2 (06:24→06:30)
[2017-10-11] MEDS ORDERED: BUPIVACAINE LIPOSOME 1/3% 266 MG/20 ML VIAL ONE (06:29)
[2017-10-11] MEDS ORDERED: SODIUM CHLORIDE 0.9% PF 50 ML VIAL ONE (06:29)
[2017-10-11] MEDS ORDERED: BACITRACIN 50000 UNIT VIAL ONE (06:29)
[2017-10-11] MEDS ORDERED: BUPIVACAINE 0.25% 30 ML VIAL ONE (06:30)
[2017-10-11] MEDS ORDERED: FENTANYL CITRATE INJ 50 MCG/1 ML 2 ML VIAL ONE (06:39)
[2017-10-11] MEDS ORDERED: MIDAZOLAM HCL 1 MG/ML 2ML VIAL ONE (06:39)
[2017-10-11] MEDS ORDERED: EpHEDrine SULFATE INJ 50 MG/ML AMP IV PRN (06:45)
[2017-10-11] MEDS ORDERED: ATROPINE SULFATE 0.1 MG/ML 5ML SYR IV PRN (06:45)
[2017-10-11] MEDS ORDERED: ONDANSETRON INJ 2 MG/ML 2 ML VIAL IV PRN (06:45)
[2017-10-11] MEDS ORDERED: FENTANYL CITRATE INJ 50 MCG/1 ML 2 ML VIAL IV PRN (06:45)
--- NOTE | 2017-10-11 06:53 | History & Physical Bridge Note ---
H&P Re-Evaluation Bridge Note: I have examined the patient, reviewed the History & Physical and in the interval since the performance of the History & Physical I have noted the following changes of clinical significance: No changes noted
[2017-10-11] MEDS ORDERED: LIDOCAINE 2% 20 MG/ML 5ML SYR ONE ×2 (07:27→10:20)
[2017-10-11] MEDS ORDERED: PHENYLEPHRINE HCL INJ 10 MG/ML VIAL ONE (07:27)
[2017-10-11] MEDS ORDERED: PROPOFOL IV EMULSION 10 MG/ML 20 ML VIAL ONE ×2 (07:27→10:20)
--- NOTE | 2017-10-11 09:04 | [facility] Post Operative Brief Note ---
Immediate Operative Summary Operative Date Oct 11, 2017. Pre-Operative Diagnosis Advanced left knee degenerative joint disease Post-Operative Diagnosis Advanced left knee degenerative joint disease Procedure(s) Performed Left total knee arthroplasty, cemented Surgeon Dr. Quiroz Perinatal Tech Surgeon(s) James Ge PA-C Estimated Blood Loss 50cc Findings Consistent with Post-Op Diagnosis Fluids (cc crystalloids) 2000 cc Specimens A: Left knee bone and tissue Drains None Anesthesia Type MAC Spinal Regional Complication(s) none Disposition Accompanied Pt To Recover: yes Disposition: Recovery Room / PACU Overlapping Procedure I was present for: the critical portions of procedure. I was immediately available: during the entire case
[2017-10-11] MEDS ORDERED: ALBUTEROL HFA INHALER 8.5 GM INH PRN (09:15)
[2017-10-11] MEDS ORDERED: RIZATRIPTAN BENZOATE 10 MG TAB PO PRN (09:15)
[2017-10-11] MEDS ORDERED: CETIRIZINE HCL 10 MG TAB PO PRN (09:15)
[2017-10-11] MEDS ORDERED: BISACODYL 10 MG SUPP PR PRN (09:15)
[2017-10-11] MEDS ORDERED: CEFAZOLIN IV 1,000 MG in DEXTROSE 5% 50ML 50 ML IV SCH (09:15)
[2017-10-11] MEDS ORDERED: SILVER SULFADIAZINE 1% CR 50 GM JAR EXT PRN (09:15)
[2017-10-11] MEDS ORDERED: RANITIDINE HCL 150 MG TAB PO PRN (09:15)
[2017-10-11] MEDS ORDERED: ZOLPIDEM TARTRATE 5 MG TAB PO PRN (09:15)
[2017-10-11] MEDS ORDERED: MAGNESIUM HYDROXIDE SUSP 30 ML UDC PO PRN (09:15)
[2017-10-11] MEDS ORDERED: ALUMINUM/MAGNESIUM/SIMETH (MAALOX MAX) 30 ML UDC PO PRN (09:15)
[2017-10-11] MEDS ORDERED: HYDROmorphone INJ 0.5 MG/0.5 ML SYR IV PRN (09:15)
[2017-10-11] MEDS ORDERED: METOCLOPRAMIDE HCL INJ 5 MG/ML 2 ML VIAL IV PRN (09:15)
[2017-10-11] MEDS ORDERED: ARTIFICIAL TEARS OP SOLN OP PRN (09:15)
[2017-10-11] MEDS ORDERED: DICYCLOMINE HCL 20 MG TAB PO PRN (09:15)
--- NOTE | 2017-10-11 09:30 | DIAGNOSTIC IMAGING REPORT ---
TWO VIEWS LEFT KNEE CLINICAL HISTORY: Postoperative examination. FINDINGS: AP and crosstable lateral portable views of the left knee are obtained. A left knee arthroplasty is in near anatomic alignment. There has been undersurface remodeling of the patella. No acute fracture is seen. There are expected postoperative changes around the knee including skin clips, soft tissue edema, and subcutaneous gas. IMPRESSION: Expected postoperative changes status post left knee arthroplasty. No acute fracture is seen. Electronically signed by: Bin Gooden M.D. 10/11/2017 9:29 AM Dictated Date/Time: 10/11/2017 9:29 AM
--- NOTE | 2017-10-11 09:47 | Anesthesia Progress Nt - [facility] ---
Anesthesia Post Op Note Date & Time Oct 11, 2017 at 09:47 Vital Signs Pain Intensity: 0 Vital Signs Past 12 Hours Date Time Temp Pulse Resp B/P (MAP) Pulse Ox O2 Delivery O2 Flow Rate FiO2 10/11/17 09:25 36.2 70 16 116/60 100 Nasal Cannula 2 10/11/17 09:15 72 16 109/58 100 Nasal Cannula 2 10/11/17 09:05 36.0 77 16 108/56 99 Nasal Cannula 2 10/11/17 05:53 36.5 71 20 123/77 93 Room Air Notes Mental Status: alert / awake / arousable, participated in evaluation Pt Amnestic to Procedure: Yes Nausea / Vomiting: adequately controlled Pain: adequately controlled Airway Patency, RR, SpO2: stable & adequate BP & HR: stable & adequate Hydration State: stable & adequate Neuraxial Anesthesia: was administered, sensory block is resolving Anesthetic Complications: no major complications apparent
[2017-10-11] MEDS ORDERED: LIDOCAINE HCL 2% 2 ML VIAL (20MG/ML) ONE (10:20)
[2017-10-11] MEDS: TRAMADOL HCL 50 MG TAB PO PRN ×4 (10:53→20:37)
[2017-10-11] MEDS: KETOROLAC TROMETHAMINE 15 MG/ML VIAL IV. SCH ×3 (11:10→23:51)
--- NOTE | 2017-10-11 11:46 | Anesthesiology Progress Note ---
Anesthesia Post Op Note Date & Time Oct 11, 2017 at 11:46 Vital Signs Pain Intensity: 5.0 Vital Signs Past 12 Hours Date Time Temp Pulse Resp B/P (MAP) Pulse Ox O2 Delivery O2 Flow Rate FiO2 10/11/17 11:00 36.4 69 16 126/78 (94) 100 Nasal Cannula 2.0 10/11/17 10:36 100 Nasal Cannula 2.0 10/11/17 10:30 36.4 66 16 120/70 (87) 100 Nasal Cannula 2.0 10/11/17 10:00 36.4 75 16 120/74 (89) 100 Nasal Cannula 2.0 10/11/17 10:00 100 Nasal Cannula 2.0 10/11/17 09:45 69 16 116/66 100 Nasal Cannula 2 10/11/17 09:35 69 16 113/58 100 Nasal Cannula 2 10/11/17 09:25 36.2 70 16 116/60 100 Nasal Cannula 2 10/11/17 09:15 72 16 109/58 100 Nasal Cannula 2 10/11/17 09:05 36.0 77 16 108/56 99 Nasal Cannula 2 10/11/17 05:53 36.5 71 20 123/77 93 Room Air Notes Mental Status: alert / awake / arousable, participated in evaluation Pt Amnestic to Procedure: Yes Nausea / Vomiting: adequately controlled Pain: adequately controlled Airway Patency, RR, SpO2: stable & adequate BP & HR: stable & adequate Hydration State: stable & adequate Neuraxial Anesthesia: was administered, sensory block is resolving Anesthetic Complications: no major complications apparent
[2017-10-11] MEDS: FERROUS GLUCONATE 324 MG TAB PO SCH ×2 (12:55→17:56)
[2017-10-11] MEDS: D5W AND 1/2NSS + 20MEQ KCL 1,000 ML IV SCH ×2 (13:39→22:30)
[2017-10-11] MEDS: ACETAMINOPHEN 500 MG TAB PO SCH ×2 (13:39→22:29)
[2017-10-11] MEDS: CEFAZOLIN IV 1,000 MG in SYRINGE 0 ML IV SCH ×2 (14:11→22:29)
[2017-10-11] MEDS ORDERED: TRANEXAMIC ACID INJ 1,000 MG in SODIUM CHLORIDE 0.9% 100ML 100 ML IV SCH (15:00)
[2017-10-11] MEDS: ONDANSETRON INJ 2 MG/ML 2 ML VIAL IV PRN (16:53)
--- NOTE | 2017-10-11 19:02 | PROGRESS NOTE ---
DATE: 10/11/2017 SUBJECTIVE: A 72-year-old white female postop from a left knee replacement. She is doing well. A did wake her when I went in the room this afternoon. She was having quite a bit of pain earlier but got some tramadol and Toradol and doing better. No chest pain or shortness of breath. Not feeling dizzy or lightheaded. OBJECTIVE: VITAL SIGNS: Temperature 36.4. Vital signs stable. PHYSICAL EXAMINATION: GENERAL: Physical examination reveals a pleasant, middle-aged female. She is lying in bed, looks comfortable. LUNGS: Clear to auscultation. HEART: Regular rate and rhythm. ABDOMEN: Soft, nontender, nondistended. EXTREMITIES: Grossly neurovascularly intact except as follows: Examination of the left leg reveals the leg to be well aligned. Dressing is clean, dry and intact. She can dorsiflex and plantarflex her foot appropriately. She is neurologically intact. X-RAYS: X-rays of the left knee from recovery room reviewed. It shows a cemented posterior stabilized total knee arthroplasty. Components are in good position. No signs of problems. ASSESSMENT: A 72-year-old white female postoperative from a left knee replacement, doing pretty well. Pain is controlled. She is neurologically intact. PLAN: 1. DVT prophylaxis including thigh-high TEDs, SCDs, and aspirin twice a day. 2. PT/OT. Weight bear as tolerated. Left total knee protocol. 3. Pain control, doing well with current pain regimen. 4. IV antibiotics x24 hours. 5. Disposition: She is planning to be discharged to home with some home health once adequately recovered.
[2017-10-11] MEDS: MONTELUKAST SOD 10 MG TAB PO SCH (20:32)
[2017-10-11] MEDS: DOCUSATE SODIUM 100 MG CAP PO SCH (20:32)
[2017-10-11] MEDS: SENNA 8.6 MG TAB PO SCH (20:33)
[2017-10-11] MEDS: DIVALPROEX 250 MG EXTENDED REL TAB PO SCH (20:33)
[2017-10-11] MEDS: ASPIRIN 81 MG ECTAB PO SCH (20:33)
--- NOTE | 2017-10-11 23:01 | OPERATIVE REPORT ---
DATE OF OPERATION: 10/11/2017 SURGEON: Dannie Quiroz MD NUCLEAR MEDICAL TECHNOLOGIST: James Ge PA-C. PREOPERATIVE DIAGNOSIS: Left knee degenerative joint disease. POSTOPERATIVE DIAGNOSIS: Left knee degenerative joint disease. PROCEDURE PERFORMED: Left cemented posterior stabilized total knee arthroplasty. COMPLICATIONS: None. ESTIMATED BLOOD LOSS: 50 mL. FLUID REPLACEMENT: 2000 mL crystalloid fluid replacement. ANESTHESIA: Spinal with adductor canal block. DRAINS: None. SPECIMENS: Left knee sent for pathology. TOURNIQUET TIME: 58 minutes at 300 mmHg. OPERATIVE INDICATIONS: The patient is a 72-year-old female who has had a several year history of bilateral knee pain and discomfort, left side greater than the right. The patient has been through extensive conservative care, which has become less successful overtime. X-rays show advanced lateral compartment DJD. She has elected to proceed with total knee arthroplasty. OPERATIVE FINDINGS: Advanced left knee DJD. She had pretty extensive grade 4 disease in all 3 compartments. She had spotty changes in the medial and more extensive changes in the patellofemoral compartment and in the posterolateral compartment, she had eburnation of lateral femoral condyle and posterolateral tibial plateau. She had a moderate size joint effusion. Slight valgus alignment to her knee. OPERATIVE IMPLANTS: Operative implants consisted of: 1. Biomet Vanguard size 62.5 left posterior bifemoral component. 2. Biomet size 67 tibial tray. 3. A 10 mm posterior stabilized polyethylene insert. 4. A 31 x 8 all poly patella. OPERATIVE PROCEDURE: The patient taken to the operating room, identified and placed on the operative table in supine position. All contact areas were appropriately padded. IV antibiotics were provided by anesthesia team. A spinal anesthetic and adductor canal block had been provided in the holding area. Thompson catheter was placed in sterile fashion. Left thigh tourniquet was then placed and left lower extremity was then prepped and draped in usual sterile fashion. Left leg was elevated and exsanguinated with Esmarch and tourniquet was placed at 300 mmHg. An anterior approach to the left knee was then performed through a longitudinal incision centered over the patella. Sharp dissection was carried out through the subcutaneous tissues down to the level of the extensor mechanism. Medial parapatellar arthrotomy incision was made. Some subperiosteal dissection was carried out medially. The fat pad resected from beneath the patellar tendon. Lateral patellofemoral ligament was released. Patella was everted and knee was flexed. The osteophytes were taken off the distal femur. The ACL and PCL were then released from the distal femur and the tibia subluxated anteriorly. The external tibial alignment jig was then placed in the anterior face of the tibia and adjusted 12 mm medially. Proximal tibial cut was made to remove about 3 mm of bone from the medial side. The tibia was then sized to a size 67. Attention was then drawn to the femur. The distal femur was entered with a sharp drill bit. Intramedullary canal was suctioned. A left 5 degree valgus cutting guide was placed. Distal femoral cutting block was pinned in place. Distal femoral cut was made to take an additional 3 mm of bone off the distal femur. The femur was then sized to a size 62.5. The AP cutting block was pinned parallel to the epicondylar axis, which was 6 degrees of external rotation. The anterior cut, anterior chamfer, posterior cut, posterior chamfer cuts were made. Box cutting guide was placed and adjusted slightly lateral and the box cut was made. The knee was brought out into extension. I did release some of the IT band in order to equalize the extension gap. I also released the popliteus to equalize the flexion gap. The remnants of the medial and lateral menisci were excised. The osteophytes were taken off the posterior aspect of the femur. A trial femoral component was placed. Tibial tray was pinned in maximum external rotation and the drill and stem punch were used to create defect in proximal tibia for the tibial tray. The knee was then trialed and the 10 mm insert fit most appropriately. Attention was then drawn to the patella. The patella was cleaned of all soft tissues. Patella thickness measured 21 mm, cut down to 13. It was sized to a size 31 patella. Lug holes were drilled for 31 patella. Lateral osteophyte was removed. Patella button was placed. Knee was taken through range of motion, patella tracked nicely with no thumbs test. Attention was then drawn toward placement of permanent components. All trial components removed. Bone plug was placed in the distal femur to limit blood loss. A double batch of Palacos G cement was mixed. A left size 62.5 posterior stabilized femoral component, size 67 tibial tray, 10 mm posterior stabilized polyethylene insert, and a 31 x 8 all poly patella then cemented in place. Knee was brought into full extension until cement hardened. Final cement check was then performed. Pericapsular tissues were injected with a total of 100 mL of a combination of 20 mL of Exparel, 30 mL of normal saline, 50 mL of 0.25% Marcaine with epinephrine. The patient did receive 1 g of tranexamic acid. The tourniquet was then let down for final tourniquet time of 58 minutes. Hemostasis was assured with the use of electrocautery. The wound was once again irrigated. Extensor mechanism was then closed with a combination of #1 PDS suture and #1 Vicryl suture in a [id number] fashion. Extensor mechanism was checked and found to be intact. Subcutaneous tissues were then closed with #2 Dexon suture in a buried interrupted fashion. Skin was closed skin ace. Leg was then cleaned and dried and a sterile dressing with Xeroform, 4 x 4, sterile cast padding, and an Carlos bandage was applied. The patient then transferred to the recovery room in stable condition. The patient tolerated the procedure well with no complications. All needle and sponge counts were correct at the end of the operation. I attest to the content of the Intraoperative Record and any orders documented therein. Any exception s are noted below.
[2017-10-12] MEDS: LORAZEPAM 1 MG TAB PO PRN ×2 (01:29→21:25)
[2017-10-12 03:37] VITALS: BP 128/72; PULSE 77; TEMP 36.6; O2SAT 98
[2017-10-12] MEDS: TRAMADOL HCL 50 MG TAB PO PRN ×4 (03:40→15:54)
[2017-10-12 06:10] LABS: HEMATOCRIT 37.9 % (37-47); HEMOGLOBIN 12.6 g/dL (12.0-16.0); MEAN CELL VOLUME 88.1 fL (80-100); MEAN CORPUSCULAR HEMOGLOBIN 29.3 pg (25-34); MEAN CORPUSCULAR HGB CONC 33.2 g/dl (32-36); MEAN PLATELET VOLUME 9.3 fL (7.4-10.4); PLATELET COUNT 250 K/uL (130-400); RED CELL DISTRIBUTION WIDTH CV 12.9 % (11.5-14.5); RED CELL DISTRIBUTION WIDTH SD 41.5 fL (36.4-46.3); WHITE BLOOD COUNT 7.46 K/uL (4.8-10.8)
[2017-10-12] MEDS: LEVOTHYROXINE 125 MCG TAB PO SCH (06:11)
[2017-10-12] MEDS: ACETAMINOPHEN 500 MG TAB PO SCH ×3 (06:12→21:27)
[2017-10-12] MEDS: KETOROLAC TROMETHAMINE 15 MG/ML VIAL IV. SCH ×4 (06:12→23:46)
[2017-10-12] MEDS: LINACLOTIDE 145 MCG CAP PO SCH (06:12)
[2017-10-12 06:42] LABS: CALCIUM 8.8 mg/dl (8.5-10.1); CREATININE 0.7 mg/dl (0.60-1.20); POTASSIUM 4.6 mmol/L (3.5-5.1)
[2017-10-12] MEDS: ONDANSETRON INJ 2 MG/ML 2 ML VIAL IV PRN ×2 (07:43→19:47)
[2017-10-12 08:11] VITALS: BP 111/66; PULSE 71; TEMP 36.8; O2SAT 99
[2017-10-12] MEDS: FERROUS GLUCONATE 324 MG TAB PO SCH ×2 (08:39→13:26)
[2017-10-12] MEDS: PANTOprazole SOD 40 MG TAB PO SCH (08:40)
[2017-10-12] MEDS: ASPIRIN 81 MG ECTAB PO SCH ×2 (08:40→21:26)
[2017-10-12] MEDS: MULTIVITAMIN TAB PO SCH (08:40)
[2017-10-12] MEDS: DOCUSATE SODIUM 100 MG CAP PO SCH ×2 (08:40→21:25)
[2017-10-12] MEDS: EZETIMIBE 10MG TAB PO SCH (08:41)
[2017-10-12] MEDS: PSEUDOEPHEDRINE HCL 30 MG TAB PO SCH (08:41)
[2017-10-12] MEDS ORDERED: NON-FORMULARY MEDICATION (Linaclotide (Linzess) 1 CAP) PO SCH (09:00)
[2017-10-12] MEDS ORDERED: MULTIVITAMIN TAB PO SCH (09:00)
[2017-10-12] MEDS: D5W AND 1/2NSS + 20MEQ KCL 1,000 ML IV SCH (09:05)
[2017-10-12 10:10] VITALS: BP 124/72; PULSE 76; O2SAT 99
[2017-10-12 11:43] VITALS: BP 132/76; PULSE 70; TEMP 36.3; O2SAT 100
[2017-10-12] MEDS ORDERED: ULT50X PO ×2 (14:05)
[2017-10-12] MEDS ORDERED: ASPI-461 PO ×2 (14:05)
[2017-10-12] MEDS ORDERED: ONDA4TAB65 PO ×2 (14:05)
[2017-10-12] MEDS ORDERED: ACET-24 PO ×2 (14:05)
--- NOTE | 2017-10-12 14:20 | PROGRESS NOTE ---
DATE: 10/12/2017 SUBJECTIVE: A 72-year-old white female postop day 1 from a left knee replacement. She is doing okay. Kind of struggling with nausea. Denies any chest pain or shortness of breath. Not feeling dizzy or lightheaded. OBJECTIVE: VITAL SIGNS: Temperature 36.3. Vital signs stable. PHYSICAL EXAMINATION: GENERAL: Physical examination reveals a pleasant elderly female. She is lying in bed, looks reasonably comfortable this afternoon. EXTREMITIES: Examination of the left leg reveals the dressing to be clean, dry and intact. Leg is well aligned. She can dorsiflex and plantarflex her foot appropriately. She is neurologically intact. LABORATORY DATA: Hemoglobin 12.6. Hematocrit 37.9. Electrolytes are stable. ASSESSMENT: A 72-year-old white female postoperative day 1 from left knee replacement, doing pretty well for the most part. Her biggest issue right now is nausea trying to balance pain medicine and nausea. PLAN: 1. DVT prophylaxis including thigh-high TEDs, SCDs, and aspirin twice a day. 2. PT and OT. Weight bear as tolerated. Left total knee protocol. 3. Pain control, doing pretty well with current pain regimen. It is always a balance between managing the pain and the side effects. 4. Nausea. We are going to stop her iron as her hemoglobin looks pretty good and see if this helps her. We will continue antiemetics as needed. Will limit her pain medicines to Tylenol, Toradol, and tramadol. 5. Disposition: She is hoping to be discharged home with some home health once adequately recovered.
[2017-10-12 15:53] VITALS: BP 128/72; PULSE 72; TEMP 36.6; O2SAT 99
--- NOTE | 2017-10-12 21:01 | Discharge Instructions ---
Discharge Instructions Date of Service Oct 12, 2017. Admission Reason for Admission: Left Knee Degenerative Joint Disease Discharge Discharge Diagnosis / Problem: Left Knee Replacement Discharge Goals Goal(s): Decrease discomfort, Improve function, Increase independence, Improve disease control, Therapeutic intervention Activity Recommendations Activity Limitations: per Instructions/Follow-up section Weightbearing Status: Left weightbearing . Instructions / Follow-Up Instructions / Follow-Up ACTIVITY RECOMMENDATIONS: Physical Therapy: * You will go to physical therapy three times each week for four to six weeks after your surgery in order to regain your knee range of motion and to retrain your knee to work properly. * It is just as important to make sure you are getting your knee perfectly straight as it is to regain your knee bend. * Taking a pain pill an hour before therapy can help you have a more productive and comfortable therapy session. Home Exercise: * You were shown a series of exercises (heel props, heel slides, etc.) in the hospital. Do these exercises three to four times each day including the exercises you were shown in physical therapy. Walking: * Get up and walk several times each day. For the first four weeks, try not to stand or walk for more than one hour at a time. If you do stand or walk for more than one hour, you will not hurt anything, but your knee and leg will likely swell. * As you feel comfortable, you may change from the walker or crutches to a cane and then to independent walking. MEDICATIONS: New Medicine: * You will likely be taking one or more of these medications: 1. Tramadol - A quick and shorter-acting pain medication. Take one to two tablets every four to six hours to lessen your pain. 2. Aspirin - Thins your blood to lessen the chance of forming a blood clot. * The most common side effects of pain medicine and iron are nausea and constipation. If nausea or constipation is too much of a problem or if you have any questions about your new medicines or doses, call [facility] at . We will try to help you manage these issues. VERY IMPORTANT TO READ AND REVIEW" Pain: * The immediate post-operative period after knee replacement surgery is often quite painful. * You are given a prescription for pain medicine. You should take it, as directed, when you need it, especially before physical therapy and before going to bed. Pain that interferes with sleep is very common and can last several months. * You will likely need pain medicine for the first four to six weeks. It will not stop all of the pain. The pain will lessen and as you feel better, you may change to milder pain medicine such as Tylenol. * The most common side effects of pain medicine are nausea and constipation, so don't take more than you need. SPECIAL CARE INSTRUCTIONS: TEDs/Elastic Stockings: * The white elastic stockings help limit swelling and prevent blood clots from forming in your legs. The more you wear them, the more they work. * Wear them for six weeks after knee replacement surgery and four weeks after partial knee replacement. Prevention of Infection: * Take antibiotics one hour before any dental cleaning, dental work, urological procedure, gastrointestinal procedure or any invasive surgery in order to prevent your new joint from getting infected. * You may get the antibiotics from the doctor performing the procedure or you may call our office at before and we will call in a prescription to the pharmacy of your choice. Things to Watch For: * Drainage from the incision site that occurs more than one week after your surgery. * Severely increased knee/leg pain or swelling. * Increased redness at the incision site. * Fever above 102 degrees Fahrenheit. * Unusual chest pain or shortness of breath. * Unusual pain or burning with urination. Call [facility] at with any of the above problems or if you have any questions about your medicines or recovery. FOLLOW UP VISIT: Make an appointment to see your doctor for approximately two weeks after surgery for a progress check and staple removal by calling the office at . Current Hospital Diet Patient's current hospital diet: Regular Diet Discharge Diet Recommended Diet: Regular Diet Procedures Procedures Performed: Left total knee arthroplasty, cemented Pending Studies Studies pending at discharge: no Laboratory Results Lipid Panel Test 08/29/17 11:15 Range/Units Cholesterol Level 201 H 0-200 mg/dl Medical Emergencies . Who to Call and When: Medical Emergencies: If at any time you feel your situation is an emergency, please call 911 immediately. . Non-Emergent Contact Non-Emergency issues call your: Surgeon . "Provider Documentation" section prepared by Dannie Quiroz. .
[2017-10-12] MEDS: DIVALPROEX 250 MG EXTENDED REL TAB PO SCH (21:25)
[2017-10-12] MEDS: SENNA 8.6 MG TAB PO SCH (21:26)
[2017-10-12] MEDS: MONTELUKAST SOD 10 MG TAB PO SCH (21:26)
[2017-10-12 23:06] VITALS: BP 143/74; PULSE 72; TEMP 36.8; O2SAT 95
[2017-10-13] MEDS: TRAMADOL HCL 50 MG TAB PO PRN (01:05)
[2017-10-13] MEDS: LEVOTHYROXINE 125 MCG TAB PO SCH (05:48)
[2017-10-13] MEDS: LINACLOTIDE 145 MCG CAP PO SCH (05:49)
[2017-10-13] MEDS: KETOROLAC TROMETHAMINE 15 MG/ML VIAL IV. SCH ×2 (05:49→12:07)
[2017-10-13] MEDS: ACETAMINOPHEN 500 MG TAB PO SCH ×2 (05:49→13:43)
[2017-10-13 07:06] VITALS: BP 129/70; PULSE 71; TEMP 36.7; O2SAT 98
--- NOTE | 2017-10-13 07:57 | PROGRESS NOTE ---
DATE: 10/13/2017 SUBJECTIVE: A 72-year-old white female postop day 2 from a left knee replacement. She is doing better this morning. Nausea seems to be improved. Pain is reasonably well controlled. No chest pain or shortness of breath. Not feeling dizzy or lightheaded. OBJECTIVE: VITAL SIGNS: Temperature 36.8. Vital signs stable. PHYSICAL EXAMINATION: GENERAL: Physical examination reveals a pleasant, healthy-appearing female lying in bed and looks pretty comfortable. EXTREMITIES: She is doing a heel prop. The incision is clean, dry and intact. Calf is soft and supple. There is no drainage. She is neurologically intact. ASSESSMENT: A 72-year-old white female postoperative day 2 from left knee replacement, doing reasonably well. Nausea seems to be improved. Pain is adequately controlled. PLAN: 1. DVT prophylaxis including thigh-high TEDs, SCDs, and aspirin twice a day. 2. PT/OT. Weight bear as tolerated. Left total knee protocol. 3. Pain control. Doing reasonably well with current pain regimen. 4. Disposition: Plan to discharge to home with some home health. We will write her for some Zofran for nausea. Follow up in 2 weeks.
[2017-10-13] MEDS: MULTIVITAMIN TAB PO SCH (09:00)
[2017-10-13] MEDS: ASPIRIN 81 MG ECTAB PO SCH (09:57)
[2017-10-13] MEDS: DOCUSATE SODIUM 100 MG CAP PO SCH (09:57)
[2017-10-13] MEDS: EZETIMIBE 10MG TAB PO SCH (09:57)
[2017-10-13] MEDS: PSEUDOEPHEDRINE HCL 30 MG TAB PO SCH (09:57)
[2017-10-13] MEDS: PANTOprazole SOD 40 MG TAB PO SCH (09:58)
[2017-10-13 12:59] VITALS: BP 129/70; PULSE 71; TEMP 36.7; O2SAT 98
--- NOTE | 2017-10-19 09:51 | DISCHARGE SUMMARY ---
ADMITTING PHYSICIAN AND SURGEON: Dr. Quiroz. ADMISSION DIAGNOSIS: Left knee degenerative joint disease. SURGERY PERFORMED: Left total knee arthroplasty. SECONDARY DIAGNOSIS: No secondary diagnosis. CONSULTS: No consults obtained. HISTORY AND PHYSICAL EXAMINATION: Well documented in the patient's chart. HOSPITAL COURSE: The patient was admitted to [facility] on 10/11/2017, underwent a total knee arthroplasty. She tolerated the procedure well. There were no complications. She was later transferred to PACU postoperatively and later to the orthopedic floor for further care. She was given Ancef for antibiotic prophylaxis, ELLIS stockings, SCDs and aspirin for DVT prophylaxis. Hemoglobin, hematocrit and vital signs were monitored during the hospital stay and remained stable. She did not require any blood transfusions. There were no complications. By postop day #2, she was tolerating a regular diet. Pain was well controlled with oral pain medications. She was participating in physical therapy. There were no any signs or symptoms any DVTs. On postop day #2, she was discharged to home without services. She was given printed discharge instructions including prescriptions for acetaminophen 500 mg, aspirin 81 mg, Zofran, and tramadol 50 mg. She was instructed to continue with physical therapy and to continue her home medications. She can be weightbearing as tolerated. Continue use of ELLIS hose stockings. Follow up with Dr. Quiroz in 10-14 days postoperatively or sooner if there are any problems or concerns.
== END 2017-10-13 15:55 | disposition home health service (06) | DRG 470 ==
LOC: C.ACU 04:54 → C.3E 06:45 → ENRESERV 09:20
PROVIDERS: ADMIT Orthopaedic Surgery Sports Medicine; ATTEND Orthopaedic Surgery Sports Medicine
PROC: 0SRD0J9 Replacement of Left Knee Joint with Synthetic Substitute, Cemented, Open Approach (ICD-10-PCS; principal; 2017-10-11 07:00)
DX: M17.12 Unilateral primary osteoarthritis, left knee (principal); R11.0 Nausea; J45.909 Unspecified asthma, uncomplicated; E03.9 Hypothyroidism, unspecified; K21.9 Gastro-esophageal reflux disease without esophagitis; E78.5 Hyperlipidemia, unspecified; G43.909 Migraine, unspecified, not intractable, without status migrainosus; Z79.899 Other long term (current) drug therapy; Z88.1 Allergy status to other antibiotic agents; Z88.5 Allergy status to narcotic agent